=== PATIENT | female | born 2000 | race Caucasian/White ===

== ENCOUNTER 2022-05-08 18:06 | Emergency (ER) | payer SELFPAY ==
[~2022-05-08] VITALS: Ht 149.9 cm; Wt 75.5 kg
[2022-05-08 19:05] VITALS: BP 110/68
[2022-05-08 19:41] LABS: BASO # 0.1 10^3/uL (0.0-0.2); BASO % 0.6 % (0.0-1.0); EOS # 0.2 10^3/uL (0.0-0.5); EOS % 1.2 % (0.0-3.0); HEMOGLOBIN 11.6 g/dl (12.0-15.5); LYMPH # 4.5 10^3/uL (1.5-5.0); LYMPH % 24.9 % (24.0-44.0); MEAN CORPUSCULAR HEMOGLOBIN 25.2 pg (27.0-33.0); MEAN CORPUSCULAR HGB CONC 32.2 g/dl (32.0-36.5); MEAN CORPUSCULAR VOLUME 78.1 fl (80.0-96.0); MONO # 0.9 10^3/uL (0.0-0.8); MONO % 4.9 % (2.0-8.0); NEUTROPHILS # 12.1 10^3/uL (1.5-8.5); NEUTROPHILS % 67.6 % (36.0-66.0); PLATELET COUNT, AUTOMATED 303 10^3/uL (150-450); RED BLOOD COUNT 4.61 10^6/uL (4.00-5.40)
[2022-05-08 20:04] LABS: ALBUMIN 3.6 G/DL (3.2-5.2); ALKALINE PHOSPHATASE 66 U/L (46-116); ALT/SGPT 23 U/L (7.0-40); AST/SGOT 19 U/L (<34); BILIRUBIN,TOTAL 0.2 MG/DL (0.3-1.2); BLOOD UREA NITROGEN 10 MG/DL (9-23); CALCIUM LEVEL 8.9 MG/DL (8.5-10.1); CARBON DIOXIDE LEVEL 20 MMOL/L (20-31); CHLORIDE LEVEL 106 MMOL/L (98-107); CREATININE FOR GFR 0.54 MG/DL (0.55-1.30); GLUCOSE, FASTING 89 MG/DL (60-100); POTASSIUM SERUM 3.8 MMOL/L (3.5-5.1); SODIUM LEVEL 139 MMOL/L (136-145); TOTAL PROTEIN 6.7 G/DL (5.7-8.2)
[2022-05-08 20:18] LABS: HCG, SERUM QUANTITATIVE 1635.5 MIU/ML (<4.2)
== END 2022-05-08 21:08 | disposition left against medical advice (07) ==
LOC: M ED 18:06
DX: Z53.21 Procedure and treatment not carried out due to patient leaving prior to being seen by health care provider (principal)

== ENCOUNTER 2022-12-29 07:38 | Emergency (ER) | payer OTHER, SELFPAY ==
[~2022-12-29] VITALS: Ht 149.9 cm; Wt 68.5 kg
[2022-12-29] MEDS ORDERED: FLUO20CA22 PO (07:48)
[2022-12-29] MEDS ORDERED: NS 500 ML IV ONE (08:05)
[2022-12-29 08:42] LABS: BASO # 0.1 10^3/uL (0.0-0.2); BASO % 0.5 % (0.0-1.0); EOS % 0.1 % (0.0-3.0); HEMOGLOBIN 13.8 g/dl (12.0-15.5); LYMPH # 1.4 10^3/uL (1.5-5.0); LYMPH % 6.6 % (24.0-44.0); MEAN CORPUSCULAR HEMOGLOBIN 24.9 pg (27.0-33.0); MEAN CORPUSCULAR HGB CONC 32.9 g/dl (32.0-36.5); MEAN CORPUSCULAR VOLUME 75.7 fl (80.0-96.0); MONO # 0.8 10^3/uL (0.0-0.8); MONO % 3.7 % (2.0-8.0); NEUTROPHILS # 19.1 10^3/uL (1.5-8.5); PLATELET COUNT, AUTOMATED 387 10^3/uL (150-450); RED BLOOD COUNT 5.55 10^6/uL (4.00-5.40); WHITE BLOOD COUNT 21.6 10^3/uL (4.0-10.0)
[2022-12-29] MEDS ORDERED: ISOVUE-370 76% 100ML VIAL As Ordered ONE (08:46)
[2022-12-29 09:03] LABS: LIPASE 31 U/L (12-53)
[2022-12-29 09:05] LABS: ALBUMIN 4.4 G/DL (3.2-5.2); ALKALINE PHOSPHATASE 73 U/L (46-116); ALT/SGPT 18 U/L (7.0-40); AMYLASE 47 U/L (30-118); AST/SGOT 14 U/L (<34); BILIRUBIN,DIRECT < 0.1 MG/DL (<0.4); BILIRUBIN,TOTAL 0.3 MG/DL (0.3-1.2); TOTAL PROTEIN 8.1 G/DL (5.7-8.2)
[2022-12-29 09:07] LABS: INR 1.15; PROTHROMBIN TIME 14.4 SECONDS (12.5-14.5)
[2022-12-29 09:08] LABS: PARTIAL THROMBOPLASTIN TIME 27.7 SECONDS (24.8-34.2)
[2022-12-29 09:12] LABS: RSV AMPLIFICATION NEGATIVE (NEGATIVE)
[2022-12-29] MEDS ORDERED: MORPHINE 2 MG/ML 1ML VIAL IV ONE (09:50)
[2022-12-29] MEDS ORDERED: NS 1,000 ML IV ONE (10:30)
[2022-12-29] MEDS ORDERED: BACTRIM 160MG/800MG DS TAB PO ONE (10:30)
[2022-12-29 11:18] LABS: BASO # 0.1 10^3/uL (0.0-0.2); BASO % 0.5 % (0.0-1.0); EOS % 0.1 % (0.0-3.0); HEMATOCRIT 40.9 % (36.0-47.0); HEMOGLOBIN 13.2 g/dl (12.0-15.5); LYMPH # 1.9 10^3/uL (1.5-5.0); LYMPH % 8.8 % (24.0-44.0); MEAN CORPUSCULAR HEMOGLOBIN 24.8 pg (27.0-33.0); MEAN CORPUSCULAR HGB CONC 32.3 g/dl (32.0-36.5); MEAN CORPUSCULAR VOLUME 76.7 fl (80.0-96.0); MONO # 0.9 10^3/uL (0.0-0.8); NEUTROPHILS # 18.7 10^3/uL (1.5-8.5); NEUTROPHILS % 85.9 % (36.0-66.0); PLATELET COUNT, AUTOMATED 376 10^3/uL (150-450); RED BLOOD COUNT 5.33 10^6/uL (4.00-5.40); WHITE BLOOD COUNT 21.7 10^3/uL (4.0-10.0)
[2022-12-29 11:40] VITALS: BP 140/73; TEMP 97.8; O2SAT 99
[2022-12-31] MEDS ORDERED: CLIN-250 PO (07:45)
== END 2022-12-29 11:42 | disposition home or self-care (01) ==
LOC: M ED 07:38
DX: S09.90XA Unspecified injury of head, initial encounter (principal); S00.93XA Contusion of unspecified part of head, initial encounter; S70.11XA Contusion of right thigh, initial encounter; T14.8XXA Other injury of unspecified body region, initial encounter; V89.2XXA Person injured in unspecified motor-vehicle accident, traffic, initial encounter; D72.829 Elevated white blood cell count, unspecified
CPT/HCPCS: 70450; 70486; 71260; 72125; 72128; 73552; 74177; 80047; 80076; 82150; 83605; 83690; 84702; 85025; 85610; 85730; 86850; 86900; 86901; 87070; 87077; 87186; 87631; 93041; 94760; 96361; 96374; 99285; Q9967

== ENCOUNTER → 2023-06-09 | Outpatient (CLI) | payer OTHER ==
[~2023-06-09] MED LIST: CLIN-250 PO; FLUO20CA22 PO
== END ==
LOC: M RAD 06:49
PROVIDERS: ATTEND Internal Medicine Gastroenterology
DX: K21.9 Gastro-esophageal reflux disease without esophagitis (principal)

== ENCOUNTER → 2023-07-08 | Day surgery (SDC) | payer OTHER ==
[~2023-07-08] VITALS: Ht 149.9 cm; Wt 71.1 kg
[~2023-07-08] MED LIST changes: +LEXA1TAB PO; +LIDOCAINE 2% 100MG/5ML SDV (FOR ANES.) As Ordered ONE; +PANT40TA29 PO; +fentaNYL 100 MCG/2 ML INJECTION As Ordered ONE; +propofoL 200 MG/20 ML VIAL As Ordered ONE
[2023-07-08] MEDS: NS 1,000 ML IV ONE (07:40)
[2023-07-08 09:05] VITALS: TEMP 96.9
[2023-07-08 09:18] VITALS: BP 116/70; O2SAT 100
== END | disposition home or self-care (01) ==
LOC: M OPP 07:24
PROVIDERS: ATTEND Internal Medicine Gastroenterology
DX: K29.70 Gastritis, unspecified, without bleeding (principal); R12 Heartburn; Z79.899 Other long term (current) drug therapy; Z91.040 Latex allergy status
CPT/HCPCS: 43239; 88305; 91035; J3010